=== PATIENT | female | born 1955 | race Caucasian/White ===

== ENCOUNTER 2016-10-27 14:36 | Inpatient (IN) | payer OTHER ==
[~2016-10-27] VITALS: Ht 162.6 cm; Wt 101.3 kg
[2016-10-29] MEDS ORDERED: BIOT50005 PO (10:00)
[2016-10-29] MEDS ORDERED: [UNRECOGNIZED DRUG - OTHER] PO (10:00)
[2016-10-29] MEDS ORDERED: PROBCAP28 PO (10:00)
[2016-10-29] MEDS ORDERED: VITA500T4 PO (10:00)
[2016-10-29] MEDS ORDERED: LOVA10TA PO (10:00)
[2016-10-29] MEDS ORDERED: CELE20TA PO (10:04)
[2016-10-29] MEDS ORDERED: VITA2000 PO (10:05)
[2016-11-01] MEDS ORDERED: ONDANSETRON HCL 4 MG/2 ML VIAL IVP PRN (07:15)
[2016-11-01] MEDS ORDERED: Post-op Orders (for Pharmacy) MISC XX ONE (07:15)
[2016-11-01] MEDS ORDERED: diphenhydrAMINE HCL 50 MG/ML VIAL IV PRN (07:15)
[2016-11-01] MEDS ORDERED: BISACODYL 10 MG SUPP RECTAL PRN (07:15)
[2016-11-01] MEDS ORDERED: ALUMINUM/MAGNESIUM/SIMETH 30 ML CUP PO PRN (07:15)
[2016-11-01] MEDS ORDERED: ZOLPIDEM TARTRATE 5 MG TAB PO PRN (07:15)
[2016-11-01] MEDS ORDERED: NALOXONE HCL 0.4 MG/ML AMP IV PRN (07:15)
[2016-11-01] MEDS ORDERED: ACETAMINOPHEN/HYDROcodone 325 MG/7.5 MG TAB PO PRN ×2 (07:15)
[2016-11-01] MEDS ORDERED: HYDR-3288 PO (07:19)
[2016-11-01] MEDS ORDERED: ENOX40P SQ (07:20)
[2016-11-01] MEDS ORDERED: ASPI81CH37 CHEW (07:20)
[2016-11-01] MEDS ORDERED: SODIUM CHLORIDE 0.9% FLUSH 10 ML FLUSH IV FLUSH PRN (07:30)
[2016-11-01] MEDS ORDERED: CHLORHEXIDINE GLUCONATE 2 % 1 PACK (2 CLOTHS) TOPICAL PRN (07:30)
[2016-11-01] MEDS ORDERED: METOPROLOL TARTRATE 25 MG TAB PO PRN (07:30)
[2016-11-01] MEDS ORDERED: SODIUM CHLORID 0.9% 500 ML IV PRN (07:30)
[2016-11-01] MEDS ORDERED: LACTATED RINGER'S 1000 ML IV PRN (07:30)
[2016-11-01] MEDS ORDERED: POVIDONE IODINE 5% (ANTISEPSIS KIT) 4 APPLICATIONS EACH NARE PRN (07:30)
[2016-11-01] MEDS ORDERED: INSULIN HUMAN REGULAR 1,000 UNITS/10 ML VIAL SQ PRN (07:30)
[2016-11-01] MEDS ORDERED: PHEN1TAB84 PO (07:38)
[2016-11-01 07:39] VITALS: BP 127/73; PULSE 75; RESP 16; TEMP 98.1; O2SAT 95
[2016-11-01] MEDS ORDERED: DEXAMETHASONE SOD PHOS 20 MG/5 ML VIAL ONE (07:43)
[2016-11-01] MEDS ORDERED: ceFAZolin 2 GM PREMIX 50 ML ONE (07:43)
[2016-11-01] MEDS ORDERED: VANCOMYCIN HCL 1000 MG VIAL ONE (07:44)
[2016-11-01] MEDS ORDERED: SODIUM CHLOR 0.9% 250 ML INJ 250 ML ONE (07:44)
[2016-11-01] MEDS ORDERED: VANCOMYCIN 1000 MG/NS 250 ML (for <70 kg) IV SCH ×2 (07:45)
[2016-11-01] MEDS ORDERED: ceFAZolin 2 GM PREMIX 50 ML IV SCH (07:45)
[2016-11-01] MEDS ORDERED: CHLORHEXIDINE GLUCONATE 4% SOLN 120 ML BTL TOPICAL SCH (07:45)
[2016-11-01] MEDS ORDERED: POVIDONE IODINE 7.5% SCRUB 118 ML BOTTLE TOPICAL SCH (07:45)
[2016-11-01] MEDS ORDERED: ROPIVACAINE PERI-ARTICULAR INJECTION. P-ARTICULR SCH ×5 (08:00)
[2016-11-01] MEDS ORDERED: DEXAMETHASONE SOD PHOS 20 MG/5 ML VIAL IV SCH (08:00)
[2016-11-01] MEDS ORDERED: fentaNYL CITRATE 250 MCG/5 ML AMP ONE ×2 (08:54)
[2016-11-01] MEDS ORDERED: MIDAZOLAM HCL 2 MG/2 ML VIAL ONE (08:54)
[2016-11-01] MEDS: CITALOPRAM HYDROBROMIDE 20 MG TAB PO SCH (09:00)
[2016-11-01] MEDS: SODIUM CHLORIDE 0.9% FLUSH 10 ML FLUSH IV FLUSH SCH ×2 (09:00→19:33)
[2016-11-01] MEDS ORDERED: SODIUM CHLORIDE 0.9% IV SCH (09:00)
[2016-11-01] MEDS ORDERED: TRANEXAMIC ACID IV SCH (09:00)
[2016-11-01] MEDS ORDERED: TRANEXAMIC PERI-ARTICULAR 3,000 MG/NS 100 ML P-ARTICULR SCH ×2 (09:00)
[2016-11-01] MEDS ORDERED: GENTAMICIN SULFATE 80 MG/2 ML VIAL IRRIGATION ONE (09:48)
[2016-11-01] MEDS ORDERED: GENTAMICIN SULFATE 80 MG/2 ML VIAL ONE (10:32)
[2016-11-01] MEDS ORDERED: DO NOT ADM ANY ANTICOAGULANT DRUGS PRN (11:22)
--- NOTE | 2016-11-01 11:59 | RADRPT ---
EXAM DATE/TIME: 11/01/2016 11:34 [place] COMPARISON: No previous studies available for comparison. INDICATIONS : Post-op left knee. MEDICAL HISTORY : None. SURGICAL HISTORY : None. ENCOUNTER: Initial ACUITY: 1 day PAIN SCORE: Non-responsive. LOCATION: Left Knee. FINDINGS: AP and lateral views of the knee following arthroplasty reveals a prosthesis in anatomic alignment. F racture is not appreciated. CONCLUSION: Status post total knee arthroplasty. Moris Dunbar MD FACR Board Certified Radiologist. This report was verified electronically.
[2016-11-01] MEDS ORDERED: PROPOFOL 200 MG/20 ML AMP IV ONE (12:00)
[2016-11-01] MEDS ORDERED: BUPIVACAINE LIPOSOME PF 1.3% 20 ML VIAL ONE (12:04)
[2016-11-01] MEDS ORDERED: GLUCAGON 1 MG/ML VIAL OTHER PRN (13:30)
[2016-11-01] MEDS ORDERED: DEXTROSE 50% IN WATER 50 ML VIAL(D50) IV PUSH PRN (13:30)
--- NOTE | 2016-11-01 13:48 | HHI.PR ---
Objective Objective Results - Vital Signs Date Time Temp Pulse Resp B/P Pulse Ox O2 Delivery O2 Flow Rate FiO2 11/01/16 12:15 77 20 120/56 94 Nasal Cannula 2 11/01/16 12:00 75 20 119/62 96 Nasal Cannula 2 11/01/16 11:45 80 20 125/72 99 Nasal Cannula 2 11/01/16 11:27 98.1 87 20 138/79 99 Nasal Cannula 2 11/01/16 07:39 98.1 75 16 127/73 95 I/O 10/31/16 10/31/16 10/31/16 11/01/16 11/01/16 11/01/16 07:00 15:00 23:00 07:00 15:00 23:00 Intake Total 1100 ml Output Total 450 ml Balance 650 ml Intake Other 1100 ml Output Urine Total 400 ml Estimated Blood Loss 50 ml A/P Assessment and Plan [id number] Farzana AnayaP November 01, 2016 13:48
[2016-11-01] MEDS: RESP: ALBUTEROL 2.5 MG/IPRATROPIUM 0.5 MG NEB (SCH) NEB ×2 (14:00→22:16)
[2016-11-01 14:02] VITALS: BP 112/56; PULSE 72; RESP 18; TEMP 97.9; O2SAT 95
[2016-11-01 14:38] VITALS: BP 87/52
[2016-11-01] MEDS ORDERED: INSULIN NovoLIN REGULAR SUPPLEMENTAL SCALE SQ SCH (16:00)
[2016-11-01 17:20] VITALS: BP 111/58; PULSE 76; RESP 18; TEMP 97.2; O2SAT 98
[2016-11-01] MEDS: SODIUM CHLOR 0.9% 1000 ML INJ 1,000 ML IV SCH (17:32)
[2016-11-01] MEDS: HYDROmorphone HCL PF 2 MG/ML VIAL IV PRN ×2 (18:38→21:55)
[2016-11-01 19:00] VITALS: BP 112/57; PULSE 84; RESP 18; TEMP 96.4; O2SAT 94
[2016-11-01 22:20] VITALS: O2SAT 92
[2016-11-02] VITALS: BP 96/56; PULSE 90; RESP 19; TEMP 96.3; O2SAT 94
[2016-11-02] MEDS: SODIUM CHLOR 0.9% 1000 ML INJ 1,000 ML IV SCH ×2 (01:29→14:00)
[2016-11-02 04:00] VITALS: BP 96/58; PULSE 91; RESP 16; TEMP 96.9; O2SAT 98
[2016-11-02 07:15] LABS: HEMATOCRIT 32.6 % (35.0-46.0); MEAN CELL VOLUME 92.8 FL (80.0-100.0); MEAN CORPUSCULAR HEMOGLOBIN 29.9 PG (27.0-34.0); MEAN CORPUSCULAR HGB CONC 32.2 % (32.0-36.0); PLATELET COUNT 173 TH/MM3 (150-450); RED BLOOD COUNT 3.52 MIL/MM3 (4.00-5.30); RED CELL DISTRIBUTION WIDTH 12.7 % (11.6-17.2); REVIEW FLAG FINAL; WHITE BLOOD COUNT 12.9 TH/MM3 (4.0-11.0)
[2016-11-02 07:44] LABS: POTASSIUM 4.2 MEQ/L (3.5-5.1)
[2016-11-02 08:11] VITALS: BP 110/56; PULSE 79; RESP 16; TEMP 95.7; O2SAT 99
--- NOTE | 2016-11-02 08:20 | PD.ORT.PN ---
Subjective Post Op Day #: 1 Subjective Remarks pain under control. denies cp and sob. Objective Vitals Vital Signs Date Time Temp Pulse Resp B/P Pulse Ox O2 Delivery O2 Flow Rate FiO2 11/02/16 04:00 96.9 91 16 96/58 98 11/02/16 00:00 96.3 90 19 96/56 94 11/01/16 22:20 92 Nasal Cannula 2.00 11/01/16 19:00 96.4 84 18 112/57 94 11/01/16 17:20 97.2 76 18 111/58 98 11/01/16 14:38 87/52 11/01/16 14:02 97.9 72 18 112/56 95 11/01/16 12:15 77 20 120/56 94 Nasal Cannula 2 11/01/16 12:00 75 20 119/62 96 Nasal Cannula 2 11/01/16 11:45 80 20 125/72 99 Nasal Cannula 2 11/01/16 11:27 98.1 87 20 138/79 99 Nasal Cannula 2 I/O 11/01/16 11/01/16 11/01/16 11/02/16 11/02/16 11/02/16 07:00 15:00 23:00 07:00 15:00 23:00 Intake Total 1427 ml 1147 ml 1482 ml Output Total 450 ml 450 ml 250 ml Balance 977 ml 697 ml 1232 ml Intake Oral 480 ml 480 ml IV Total 327 ml 667 ml 1002 ml Other 1100 ml Output Urine Total 400 ml 450 ml 250 ml Estimated Blood Loss 50 ml # Bowel Movements 0 0 Result Diagram: 11/02/16 0556 11/02/16 0556 Objective Remarks in bed, nad incision no erythema, no drainage neg homans nvi Assessment & Plan Ortho Post Op Day #: 1 Problem List: Assessment and Plan s/p L TKA wbat daily dressing changes lovenox monitor BP rx in chart d/c planning home with [facility] and pt - cleared today if works with PT f/up dr. carranza 2 weeks Oswaldo Boyd November 02, 2016 08:19
--- NOTE | 2016-11-02 08:21 | HHI.DCPOC ---
Discharge Care Plan Diagnosis: (1) Primary localized osteoarthrosis, lower leg Your Health Problems Are: Difficulty with ADL Goals to Promote Your Health * To prevent worsening of your condition and complications * To maintain your health at the optimal level Directions to Meet Your Goals Take your medications as prescribed Follow your dietary instruction Follow activity as directed Keep your appointments as scheduled Take your immunizations and boosters as scheduled If your symptoms worsen call your PCP, if no PCP go to Urgent Care Center or Emergency Room Smoking is Dangerous to Your Health. Avoid second hand smoke Call the 24-hour hour crisis hotline for domestic abuse at Oswaldo Boyd November 02, 2016 08:21
--- NOTE | 2016-11-02 08:22 | HHI.FF ---
Face to Face Verification Diagnosis: (1) Primary localized osteoarthrosis, lower leg Physical Therapy Gait training, Safety evaluation, Transfer training, bed to chair Knee: Total knee, Protocol: Left, Full weight bearing Left LE Weight Bearing: WB as tolerated Nursing RN: 3 days/week x 2 weeks Nursing: Rodrigue teaching, Dressing changes Dressing Changes: Daily dressing change I have seen patient Toshia Patterson on 11/02/16. My clinical findings support the need for the requested home health care services because: Limited ability to care for self High risk of falls I certify that my clinical findings support that this patient is homebound because: Post-op weakness Unsteady gait/balance Oswaldo Boyd November 02, 2016 08:22
[2016-11-02] MEDS: CITALOPRAM HYDROBROMIDE 20 MG TAB PO SCH (08:51)
[2016-11-02] MEDS: SODIUM CHLORIDE 0.9% FLUSH 10 ML FLUSH IV FLUSH SCH (08:55)
--- NOTE | 2016-11-02 09:18 | MB ---
cc: LEIF CUEVAS DATE OF CONSULTATION 11/01/2016 DATE OF 1955 REASON FOR CONSULTATION Medical management. HISTORY OF THE PRESENT ILLNESS This is a pleasant 61-year-old obese, white female who is status post left total knee arthroplasty. She is currently in her private room out of surgery. She is drowsy, eyes are closed but she is responding to verbal stimuli. Her is at her bedside and is assisting with some of her history. Currently the patient's vital signs are stable. Her skin color is pink. She is warm and dry. She is assisting with some of her history. Currently the patient has no facial grimace and she is pain free. Due to some of her medical comorbidities we have been called in for medical management. PAST MEDICAL HISTORY 1. Degenerative disc disease including cervical disc disease. 2. Uterine cancer. 3. Hot flashes. 4. Episodes of hypoglycemia. 5. Obesity 6. Hyperlipidemia. 7. Chronic obstructive pulmonary disease. PAST SURGICAL HISTORY 1. Previous arthroscopy of the left knee. 2. Partial hysterectomy. 3. Cervical surgery. ALLERGIES PEPTO BISMOL, PHENERGAN, SENNOSIDES, SULFA DRUGS AND ZOFRAN. MEDICATIONS 1. currently now on Lovenox. 2. Celexa. 3. Probiotic. 4. [place] dextran. 5. Lovastatin. 6. Aspirin 7. Hydrocodone. 8. Biotin. 9. Vitamin B12. 10. Vitamin D3. SOCIAL HISTORY The patient is currently , lives at home with her in her own home. She was a tobacco user up until 9 years ago when she quit. She is a social alcohol intake, occasionally of beer. No illicit drugs. FAMILY HISTORY NA. REVIEW OF SYSTEMS A 10 point review was obtained but limited due to the patient's drowsiness. She was able to answer simple questions. She states that she had a BM this morning. She denies any fever. No cough. No nausea or vomiting. Other systems negative or unremarkable. PHYSICAL EXAMINATION VITAL SIGNS: Temperature is 98.1, pulse 77, respiratory rate 20, blood pressure 120/56, O2 saturation 94% O2 at 2 liters per nasal cannula. GENERAL: Obese white female looks to be her stated age, resting in the bed. Eyes are closed. No facial grimace. She is responding softly to brief verbal stimuli. She is status post left total knee arthroscopy. HEENT: Atraumatic, normocephalic. Pupils equal, round, reactive to light and accommodation. Mucous membranes are dry. NECK: Thick, obese. Trachea is midline. CARDIOVASCULAR: S1-S2. Regular rate and rhythm. No murmurs, rubs, or gallops appreciated. She has no lower extremity edema. Pulses are intact. LUNGS: Essentially clear anteriorly and posteriorly with no wheezes, rhonchi or rales. She has low volumes but can take a deep breath on command. ABDOMEN: Round, soft and nontender. Nondistended. Active bowel sounds heard. MUSCULOSKELETAL: She can move her upper extremities with purpose. Lower right leg with purpose. Left leg is currently partially immobilized. She can wiggle her toes on command on her left foot. NEUROLOGIC: She is drowsy but does respond to verbal stimuli. Speech is clear, soft. SKIN: [place], warm and dry. LABORATORY DATA Labs were done before admission to the hospital. Glucose shows to be 82. BUN 17, creatinine 0.63. Sodium 137, potassium 4.4, chloride 94, carbon dioxide 24, calcium 9.8. Total protein 7.5. Bilirubin 0.4. Alkaline phosphatase 60. Hematology, WBC shows 6.6, RBC 4.48, hemoglobin 13.7, hematocrit 41.7. Urine is yellow, clear, specific gravity 1.013, pH is 6, protein is negative. Other negatives are glucose, ketones, bilirubin, and occult blood. Nitrites negative. Leukocyte esterase negative. Prothrombin time 10.1. Normal is 9.1-12.0 on this range. IMAGING Diagnostic data left knee x-ray shows status post total knee arthroplasty. ASSESSMENT 1. Left knee osteoarthritis with the patient being status post left total knee arthroplasty. 2. History of hypoglycemia. 3. Obesity. 4. History of hyperlipidemia. 5. Degenerative disc disease. 6. Chronic obstructive pulmonary disease. PLAN Our plan is to monitor and assume her medical management during her hospital stay. Since the patient has a history of COPD we will give her DuoNebs q.6h as needed. Accu-Cheks to monitor blood sugars but no sliding scale needed. We will draw labs in the morning to evaluate for any abnormals including any leukocytosis or acute anemia. Postoperative care and pain management will be managed per orthopedics. O2 per 2 liters nasal cannula as needed. Medications will be reconciled as needed for this hospital stay. The patient will be on DVT prophylaxis starting in the a.m. on Lovenox. The patient will continue her multivitamins. She currently has a Tracey catheter, once she is arousable and able to void on her own, catheter can be discontinued. The patient is full code. Full aggressive care. We appreciate this consultation. Dictated by: CECI Gallo Leif Cuevas MD JP/ROLANDO /1:35 PM /9:18 AM PT SEEN AND EXAMINED ONDAY OT ADMISSIONAS ABOVE LABS AND MEDS REVIEWED [facility] PT AND SPOUSE AT BEDSIDE BERTA ORNELAS ABOUT PLAN OF CARE MTDD
[2016-11-02] MEDS: RESP: ALBUTEROL 2.5 MG/IPRATROPIUM 0.5 MG NEB (SCH) NEB ×2 (09:55→13:41)
[2016-11-02] MEDS ORDERED: ENOXAPARIN SODIUM 40 MG/0.4 ML SYRINGE SQ SCH (10:00)
--- NOTE | 2016-11-02 10:27 | HHI.PR ---
Subjective Remarks Resting in bed and has been up to bedside commode with help Awake alert oriented No acute shortness of breath Discussed her bowel regimen Afebrile (Farzana Anaya) Objective Objective Results - Vital Signs Date Time Temp Pulse Resp B/P Pulse Ox O2 Delivery O2 Flow Rate FiO2 11/02/16 09:59 21 11/02/16 08:11 95.7 79 16 110/56 99 11/02/16 04:00 96.9 91 16 96/58 98 11/02/16 00:00 96.3 90 19 96/56 94 11/01/16 22:20 92 Nasal Cannula 2.00 11/01/16 19:00 96.4 84 18 112/57 94 11/01/16 17:20 97.2 76 18 111/58 98 11/01/16 14:38 87/52 11/01/16 14:02 97.9 72 18 112/56 95 11/01/16 12:15 77 20 120/56 94 Nasal Cannula 2 11/01/16 12:00 75 20 119/62 96 Nasal Cannula 2 11/01/16 11:45 80 20 125/72 99 Nasal Cannula 2 11/01/16 11:27 98.1 87 20 138/79 99 Nasal Cannula 2 I/O 11/01/16 11/01/16 11/01/16 11/02/16 11/02/16 11/02/16 07:00 15:00 23:00 07:00 15:00 23:00 Intake Total 1427 ml 1147 ml 1482 ml Output Total 450 ml 450 ml 250 ml Balance 977 ml 697 ml 1232 ml Intake Oral 480 ml 480 ml IV Total 327 ml 667 ml 1002 ml Other 1100 ml Output Urine Total 400 ml 450 ml 250 ml Estimated Blood Loss 50 ml # Bowel Movements 0 0 (Farzana Anaya) Result Diagram: 11/02/16 0556 11/02/16 0556 ROS General: Weakness (generalized status post daily 1 left knee arthroplasty), Other (10 point ROS done positives noted otherwise systems negative or unremarkable, patient has a tendency to have diarrhea she is refusing stool softeners) (Farzana Anaya) Physical Exam Physical Exam PHYSICAL EXAMINATION GENERAL: This is a, obese well-developed, well-nourished female who appears to be in no acute distress. She is alert and awake, states 70 pound weight loss with active dieting. HEAD: Normocephalic without any lesion or mass noted. Facial features appear symmetric. OROPHARYNGEAL: Oropharynx without erythema or edema. NECK: Supple. No nuchal rigidity or lymphadenopathy. Trachea midline without deviation. CARDIAC: Regular rhythm, regular rate, S1 and S2 are heard LUNGS: Clear to auscultation bilaterally. No wheeze or rhonchi ABDOMEN: Soft, nontender, no organomegaly or masses. Bowel sounds are heard in all four quadrants. No rebound. No guarding. EXTREMITIES: Mild left knee edema. Pulses intact NEUROLOGICAL: Patient mood and affect appropriate. No focal deficit SKIN:Warm and moist Objective Remarks I'm doing good today (Farzana Anaya) A/P Assessment and Plan 1. Left knee osteoarthritis with the patient being status post left total knee arthroplasty. 2. History of hypoglycemia. 3. Obesity. 4. History of hyperlipidemia. 5. Degenerative disc disease. 6. Chronic obstructive pulmonary disease. PLAN Status post day 1 of left total knee arthroplasty, she is up out of bed going to the bedside commode and sitting up in chair working with physical therapy Accu-Cheks blood sugars without hypoglycemia, mild hyperglycemia noted monitoring her Accu-Cheks. No sliding scale Obesity currently patient is on a dietary regimen with Adipex and exercise. States 70 pound weight loss and plans to go home and continue her program Degenerative disc disease medical management COPD from previous tobacco use. Is been quit for 9 years no acute shortness of breath, no wheezing no rhonchi. Medical management Vital signs reviewed in normal range Labs reviewed, small amount leukocytosis but patient is postop her knee replacement, anemia possible post op and or chronic disease. Stable we'll monitor Bowel regimen, patient states that she has a tendency to have diarrhea, request no stool softeners and usually uses her on meds for constipation. [address] [place]. Discharge planning in process patient states she is going home tomorrow with physical therapy at home. Assisting with [id number] documentation and home health. (Farzana Anaya) Assessment and Plan pt seen and examined has nausea with norco. cant take meds for nuasea as it makes it worse need ultram for pain no other complaint labs reviewed meds reviwed dw pt and dw rn dw cargo checker (Chris Cuevas MD) Farzana Anaya November 02, 2016 10:27 Chris Cuevas MD November 02, 2016 11:26
--- NOTE | 2016-11-02 10:32 | HHI.FF ---
Face to Face Verification Diagnosis: (1) Primary localized osteoarthrosis, lower leg (2) Obesity (BMI 30-39.9) (3) Hypoglycemia (4) Hyperglycemia, unspecified Physical Therapy Order: Evaluate and Treat, Improve ambulation, Strength and gait training Occupational Therapy Order: Evaluate and Treat, Improve ADL, Gross motor coordination, Fine motor coordination Home Health Nursing Order: Wound care and dressing changes (monitor) Nursing assessment with vital signs I have seen patient Toshia Patterson on 11/02/16. My clinical findings support the need for the requested home health care services because: Deconditioned w/ increased weakness (status post left knee arthroplasty) I certify that my clinical findings support that this patient is homebound because: Post-op weakness Unsteady gait/balance (status post left knee arthroplasty, obesity) Farzana Anaya November 02, 2016 10:32
[2016-11-02 11:00] VITALS: BP 130/60; PULSE 91; RESP 20; TEMP 97.2; O2SAT 97
[2016-11-02] MEDS: traMADol HCL 50 MG TAB PO PRN ×2 (11:36→16:01)
[2016-11-02] MEDS ORDERED: DOCUSATE SODIUM 100 MG CAP PO SCH (21:00)
[2016-11-02] MEDS ORDERED: MULTIVITAMINS/MINERALS THERAPEUTIC TAB PO SCH (21:00)
--- NOTE | 2016-11-03 07:16 | MP ---
cc: CAROLINA GALICIA M.D. DATE OF SURGERY 11/01/2016 PREOPERATIVE DIAGNOSIS Left knee osteoarthritis POSTOPERATIVE DIAGNOSES Left knee osteoarthritis PROCEDURE Left total knee arthroplasty SURGEON Dr. Carolina Galicia VENTILATION MECHANIC ANJANA Storm ANESTHESIA General with an adductor canal block ESTIMATED BLOOD LOSS 50 cc COMPLICATIONS None TOURNIQUET TIME 58 minutes at 250 mmHg IMPLANTS USED DePuy Attune size 5 posterior stabilized femoral components, size 5 rotating platform tibia baseplate, size 8 mm polyethylene tibial insert, size 35 patella. JUSTIFICATION This patient is a 61-year-old female with a history of severe end-stage osteoarthritis involving the left knee. She has severe disabling pain with standing, walking ambulation, weight-bearing activities and severe pain at rest. Her pain interferes with activities of daily living. She has failed greater than three months of nonoperative conservative treatment to include medication therapy, injections, ambulatory assisted aids, activity modification, home exercise program, weight loss attempts. X-rays of the left knee reveals severe end-stage osteoarthritis with [id number] joint space narrowing, subchondral sclerosis, subchondral cyst osteophyte formation, varus deformity. The patient counseled as to the risks, benefits and alternative to a total knee arthroplasty. The risks were discussed which include, but are not limited to anesthesia, bleeding, infection damage to nerves, blood vessels, pain, stiffness, , blood clots, pulmonary embolism and even . The patient's pain is severe. She favored the benefits over the risks and did wish to proceed with surgery. PROCEDURE IN DETAIL A written consent obtained. The patient identified by name, taken to the operating room, placed supine position and general anesthesia was administered as well as two grams of IV Ancef and one gram of IV vancomycin. She did receive preoperative adductor canal nerve block. A well-padded tourniquet was placed on the left thigh. The left lower extremity prepped and draped using Isopropyl alcohol, Hibiclens solution and Chloraprep solution. After a time-out was performed, an Esmarch bandage was used to exsanguinate the left lower extremity and tourniquet inflated to 250 mmHg. A longitudinal incision made over the anterior aspect of the left knee. A medial parapatellar arthrotomy was performed. The patella was everted. A patellar resection guide was used to resect 9 mm of patella. The size 35 mm guide was placed. Three drills holes were placed and a 35 mm trial fit well. Attention was turned to the femur where an intramedullary guidewire was placed. The distal femoral guide was set to remove 10 mm off the distal femur, 5 degrees off in anatomic valgus axis alignment and also was used to perform a distal femoral cut. Attention was turned to the tibia where an extramedullary tibial guide was set to remove 4 mm of the lowest portion of the medial tibial plateau. The tibia was pinned in place and a tibia cut was performed. A 5 mm spacer block showed full extension. Attention was turned back to the femur where an AP sizer block measured a size 5. The anterior reference 3 degree external rotation guide was used to pin a size [address] Anterior, posterior and chamfer cuts were performed. A size 5 PCL box has pinned in place. The PCL box was cut with an oscillating saw. The medial and lateral meniscus remnants were removed, as well as well bone and soft tissue debris from the posterior portion of the knee. A size 5 tibia base was pinned in place. The tibia was drilled and punched. The components were evaluated and final components cemented in place. With the 8 mm tibial insert, the leg could achieve full extension 0 degrees and flexion to 140. No evidence of tibial lift-off. Varus-valgus balance appropriate and symmetric and patella was noted to track centrally. The tourniquet deflated. Bovie cautery was used for hemostasis. The arthrotomy incision was closed with #1 Vicryl sutures. The subcutaneous tissues closed with 2-0 Vicryl suture. Skin was closed with Dermabond. Prior to closure, the knee was thoroughly irrigated with sterile saline pulse lavage antibiotic impregnated solution. The patient tolerated the procedure well. No intraoperative complications were noted. Cb Boyd, physician media center assistant certified, was present during the entire procedure to include patient positioning and the procedure itself. The medical necessity of a physician media center assistant was indicated in this case due to the complexity of the procedure. He assisted with appropriate manipulation of the leg and also traction of muscle, tendon, bone and neurovascular structures. He assisted with both preparation of bone cuts and also implantation of the prosthetic replacement. MD MARK Hudson/AMY /11:04 AM /7:00 AM
--- NOTE | 2016-11-08 08:51 | MD ---
cc: CAROLINA FAITH ADMISSION DATE: 11/01/2016 DISCHARGE DATE: 11/02/2016 ADMISSION DIAGNOSIS Severe degenerative osteoarthritis left knee DISCHARGE DIAGNOSIS Severe degenerative osteoarthritis left knee HISTORY OF PRESENT ILLNESS Ms. Patterson is a 61-year-old female who presented to the [facility] for evaluation by Dr. Carloina Faith regarding her severe and progressive left knee pain. The patient states the knee pain has been bothering her for many years and is currently inhibiting her activities of daily living. She has severe constant aching sensation in the left knee that is aggravated by weightbearing activities. She states she has no alleviating factors, although in the past she has tried medications, bracing, physical therapy, home exercise program, weight loss attempts, and multiple corticosteroid injections without relief of symptoms. She does have x-ray evidence of severe degenerative osteoarthritis of left knee. While in the office the patient was counseled on her diagnosis and treatment options, risks, benefits, indications of all discussed in great detail. The patient did elect proceed with surgical intervention to include a left total knee arthroplasty. DATE OF SURGERY 11/01/2016, left total knee arthroplasty. POSTOP AFTER SURGERY The patient admitted to [facility] where she received appropriate medical management, pain control, DVT prophylaxis as well as physical therapy. DISCHARGE Once being discharged from hospital the patient is cleared to go home where she will receive home health care and home physical therapy. She is in stable condition. The patient may weightbear as tolerated. She is to receive daily dressing changes and has been instructed on appropriate wound care management. Patient has been provided prescriptions for pain control as well as DVT prophylaxis medication. She has also been provided a follow-up appointment see Dr. Carolina Faith in the office in approximately two days from her date of surgery. The patient has asked appropriate questions which have all been answered. The patient is cleared for discharge. Dictated by: ANJANA Treadwell MD MARK Hudson/ANA LAURA /8:26 AM /8:51 AM
== END 2016-11-02 16:31 | disposition home health service (06) | DRG 470 ==
LOC: HSDI 11-01 06:53 → N06B 11-01 12:52
PROVIDERS: ADMIT Orthopaedic Surgery Sports Medicine; ATTEND Orthopaedic Surgery Sports Medicine
PROC: 3E0T3BZ Introduction of Anesthetic Agent into Peripheral Nerves and Plexi, Percutaneous Approach (ICD-10-PCS; 2016-11-01)
PROC: 0SRD0J9 Replacement of Left Knee Joint with Synthetic Substitute, Cemented, Open Approach (ICD-10-PCS; principal; 2016-11-01 08:56)
DX: M17.12 Unilateral primary osteoarthritis, left knee (principal); J44.9 Chronic obstructive pulmonary disease, unspecified; E03.9 Hypothyroidism, unspecified; Z87.891 Personal history of nicotine dependence; E66.9 Obesity, unspecified; Z68.38 Body mass index [BMI] 38.0-38.9, adult; Z85.42 Personal history of malignant neoplasm of other parts of uterus; E78.5 Hyperlipidemia, unspecified; D64.9 Anemia, unspecified; R73.9 Hyperglycemia, unspecified
CPT/HCPCS: 73560; 80048; 82948; 85027; 86850; 86900; 86901; 94150; 94640; 94664; C1776; C9290; J0171; J0690; J0735; J1100; J1170; J1580; J1650; J1885; J2250; J2795; J3010; J3370; J7030; J7050; J7120; L1830